=== PATIENT | male | born 1995 | race Caucasian/White ===

== ENCOUNTER 2019-03-07 18:26 | Inpatient (IN) | payer OTHER ==
[2019-03-07 18:48] LABS: #Eosinphils 0.2 thou/uL (0.0-0.7); #Lymphocytes 1.8 thou/uL (1.20-3.40); #Monocytes 0.4 thou/uL (0.11-0.59); #Neutrophils 3.9 thou/uL (1.40-6.50); %Basophils 0.6 % (0.0-1.0); %Eosinophils 2.9 % (0.0-10.0); %Lymphocytes 28.4 % (21.0-51.0); %Monocytes 6.9 % (0.0-10.0); %Neutrophils 61.3 % (42.0-75.0); Hemoglobin 16.6 g/dL (14.0-18.0); Mean Corpuscular HGB CONC 35.4 g/dL (32.0-36.0); Mean Corpuscular Hemoglobin 31.9 pg (27.0-31.0); Mean Corpuscular Volume 90.3 fL (78.0-98.0); Mean Platelet Volume 7.6 fL (7.4-10.4); Platelet Count 236 thou/uL (130-400); RBC Distribution Width 11.5 % (11.5-14.5); Red Blood Cell (RBC) Count 5.19 mill/uL (4.70-6.10); White Blood Cell (WBC) Count 6.4 thou/uL (4.8-10.8)
[2019-03-07 18:52] LABS: Bacteria/HPF None Seen HPF (None Seen); Bilirubin Negative (Negative); Blood, Urine 2+ (Negative); Clarity Clear (Clear); Glucose, Urine (Dipstick) Normal (Negative); Leukocyte Negative Leu/uL (Negative); Nitrite Negative (Negative); Protein, Urine (Dipstick) Negative (Neg-Trace); RBC/HPF 0-3 HPF (0-3); Squamous Epithelial None Seen HPF (0-3); Urobilinogen Normal mg/dL (Less than 2); WBC/HPF 0-3 HPF (0-3)
[2019-03-07 19:11] LABS: ALT (SGPT) 130 U/L (8-55); AST (SGOT) 532 U/L (5-34); Albumin 4.8 g/dL (3.5-5.0); Alkaline Phosphatase 59 U/L (40-110); Anion Gap 13 mmol/L (10-20); BUN (Urea Nitrogen) 8 mg/dL (8.9-20.6); Bilirubin, Total 0.7 mg/dL (0.2-1.2); Calc. Creatinine Clearance 0 mL/min (70-130); Calcium 9.8 mg/dL (7.8-10.44); Carbon Dioxide 24 mmol/L (22-29); Chloride 105 mmol/L (98-107); Estimated GFR-MDRD Greater than 90; Globulin 2.2 g/dL (2.4-3.5); Glucose 101 mg/dL (70-105); Potassium 3.8 mmol/L (3.5-5.1); Sodium 138 mmol/L (136-145)
[2019-03-07 20:10] LABS: CK (CPK) Greater than 40000 U/L (30-200)
[2019-03-07] MEDS: Sodium Chloride 0.9% 1,000 ML IV SCH (22:30)
[2019-03-07] MEDS ORDERED: Ondansetron ODT 4 MG TAB PO PRN (22:31)
[2019-03-07] MEDS ORDERED: Acetaminophen 650 MG Suppository PR PRN (22:31)
[2019-03-07] MEDS ORDERED: Ondansetron PF 4 MG/2 ML Vial IVP PRN (22:31)
[2019-03-07] MEDS: Acetaminophen 325 MG TAB PO PRN (23:10)
[2019-03-07 23:23] VITALS: BMI 26.4
--- NOTE | 2019-03-07 23:27 | HP ---
PRIMARY CARE DOCTOR: The patient has no PCP. CODE STATUS: Full code. TIME OF EVALUATION: 09:40 p.m. CHIEF COMPLAINT: Bilateral upper extremities pain. HISTORY OF PRESENT ILLNESS: This is a 24-year-old male patient with no significant medical problems, who came to the hospital after having bilateral upper arms, the area around the elbows with severe pain, swelling, and decreased range of motion. The patient was in the gym on Wednesday and had been over working. He had not been in gym for quite some time. The patient reported no other significant associated symptoms. Symptoms were [id number]. REVIEW OF SYSTEMS: Positive findings. Musculoskeletal, the patient has arthralgia, swelling in bilateral elbows. All other systems were reviewed and negative except for the findings mentioned above. 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 PAST SURGICAL HISTORY: No surgical history. PSYCHIATRIC HISTORY: No previous psych history. SOCIAL HISTORY: The patient drinks socially. Denies drug use. No smoking history. KNOWN ALLERGIES: Penicillamine. FAMILY HISTORY: Reviewed and noncontributory to current presentation. REPORTED MEDICATIONS: None. PHYSICAL EXAMINATION: VITAL SIGNS: On presentation, blood pressure 184/96 with heart rate 114, respiratory rate was 18, and temperature 98.1. Pain was 3/10. Oxygen saturation was 96% on room air. GENERAL APPEARANCE: The patient is alert, oriented, no acute distress. HEENT: Eyes normal conjunctivae. Moist oral mucosa. Anicteric. No JVD. RESPIRATORY: Bilateral air entry. No rales. No wheezes. Symmetric expansion. CARDIOVASCULAR: Normal rate, regular rhythm. No murmurs. No gallop. No edema. ABDOMEN: Soft. Normal bowel sounds. MUSCULOSKELETAL: Bilateral upper extremities tenderness and pain with decreased range of motion. SKIN: Warm and intact. No pallor. No rash. No redness. Capillary refill seems to be intact. NEURO: No evidence of any new focal weakness. Cranial nerve seems to be intact. PSYCH: The patient is in good mood. No anxiety. Optimal judgment. LABORATORY DATA: Labs were reviewed. Hematology is normal. Chemistry is normal except for AST 532 and ALT 130. CK more than 40,000. Urine was done, and it showed 2+ blood with no red blood cells. ASSESSMENT AND PLAN: The patient will be placed in the hospital with the following medical problems. 1. Rhabdomyolysis with CK of 40,000 as per history likely related to recent extreme workout. We will hydrate. We will monitor kidney function. We will monitor CK level. 2. Deep venous thrombosis prophylaxis. 3. Hypertension. The patient reported this is new for him, could be related to aggressive hydration for CK. We will monitor. Might need IV p.r.n. medication for optimal control. Job ID: [id number] MTDD
[2019-03-08 01:15] LABS: Anion Gap 10 mmol/L (10-20); BUN (Urea Nitrogen) 7 mg/dL (8.9-20.6); Calc. Creatinine Clearance 166 mL/min (70-130); Calcium 8.9 mg/dL (7.8-10.44); Carbon Dioxide 25 mmol/L (22-29); Chloride 110 mmol/L (98-107); Estimated GFR-MDRD Greater than 90; Glucose 115 mg/dL (70-105); Potassium 3.7 mmol/L (3.5-5.1); Sodium 141 mmol/L (136-145)
[2019-03-08] MEDS: traMADol HCl 50 MG TAB PO PRN ×3 (01:22→19:53)
[2019-03-08] MEDS: Sodium Chloride 0.9% 1,000 ML IV SCH ×3 (01:23→06:30)
[2019-03-08 06:10] LABS: #Eosinphils 0.2 thou/uL (0.0-0.7); #Lymphocytes 2.8 thou/uL (1.20-3.40); #Monocytes 0.5 thou/uL (0.11-0.59); #Neutrophils 4.1 thou/uL (1.40-6.50); %Basophils 0.3 % (0.0-1.0); %Eosinophils 2.6 % (0.0-10.0); %Lymphocytes 36.7 % (21.0-51.0); %Neutrophils 53.4 % (42.0-75.0); Hemoglobin 14.1 g/dL (14.0-18.0); Mean Corpuscular HGB CONC 34.8 g/dL (32.0-36.0); Mean Corpuscular Hemoglobin 31.7 pg (27.0-31.0); Mean Corpuscular Volume 91.1 fL (78.0-98.0); Mean Platelet Volume 7.6 fL (7.4-10.4); Platelet Count 204 thou/uL (130-400); RBC Distribution Width 11.5 % (11.5-14.5); Red Blood Cell (RBC) Count 4.47 mill/uL (4.70-6.10); White Blood Cell (WBC) Count 7.6 thou/uL (4.8-10.8)
[2019-03-08] MEDS: Acetaminophen 325 MG TAB PO PRN ×2 (06:30→22:40)
[2019-03-08 06:56] LABS: Anion Gap 11 mmol/L (10-20); BUN (Urea Nitrogen) 6 mg/dL (8.9-20.6); Calc. Creatinine Clearance 182 mL/min (70-130); Calcium 8.3 mg/dL (7.8-10.44); Carbon Dioxide 22 mmol/L (22-29); Chloride 111 mmol/L (98-107); Estimated GFR-MDRD Greater than 90; Glucose 90 mg/dL (70-105); Potassium 3.9 mmol/L (3.5-5.1); Sodium 140 mmol/L (136-145)
[2019-03-08] MEDS ORDERED: Sodium Bicarbonate 50 MEQ in Sodium Chloride 0.45% 1,000 ML IV SCH (07:45)
[2019-03-08] MEDS ORDERED: Enoxaparin Sodium 40 MG/0.4 ML SYRINGE SC SCH (09:00)
[2019-03-08] MEDS: Furosemide 20 MG TAB PO SCH ×2 (09:52→14:25)
--- NOTE | 2019-03-08 10:23 | CON ---
DATE OF CONSULTATION: 03/08/2019 SERVICE: Nephrology. REQUESTING PHYSICIAN: Rod Nichols MD REASON FOR CONSULTATION: Severe rhabdomyolysis with CPK more than 40,000. HISTORY OF PRESENT ILLNESS: A 24-year-old patient with no known medical history, admitted due to bilateral upper arm and chest pain associated with decreased range of motion. The patient on presentation was noted to be hypertensive and in pain. Further evaluation revealed markedly elevated CPK of more than 40,000. Impression of rhabdomyolysis was made and the patient was started on IV fluid therapy. However, subsequent CPK levels came back more than 40,000. Hence, Nephrology consult. The patient continues to complain of bilateral upper arm pain and swelling as well as decreased range of motion and anterior chest pain. He denied fever, headache, nausea, vomiting, change in mental status, palpitations, dizziness, nausea, vomiting, change in bowel habit, hematuria, dysuria, hematemesis, or leg swelling. PAST MEDICAL HISTORY: Reported history of PVCs for which he was seen by Cardiology, otherwise no current medical problems. PAST SURGICAL HISTORY: None. PSYCHIATRIC HISTORY: None. FAMILY HISTORY: Reviewed, but noncontributory. SOCIAL HISTORY: The patient drinks alcohol occasionally, but denied recreational drug use or tobacco use. ALLERGIES: PENICILLIN. HOME MEDICATIONS: None. CURRENT MEDICATIONS: 1. Sodium bicarb in half NS at 200 mL/h. 2. Lovenox 40 mg subcutaneous daily. 3. Tylenol as needed. 4. Zofran as needed. 5. Tramadol 50 mg q.6 p.r.n. as needed. REVIEW OF SYSTEMS: 12-point review of system performed was negative other than pertinent positives and negatives included in the history of present illness. PHYSICAL EXAMINATION: VITAL SIGNS: Temperature 98.0, pulse 105, respiratory rate 16, SpO2 of 99% on room air, blood pressure is 141/94. GENERAL: Young male, in no distress. Afebrile. Anicteric. Acyanotic. HEENT: Normocephalic, atraumatic. Oral mucosa is moist. NECK: Supple. Nontender with good range of motion. No masses or lymphadenopathy appreciated. CARDIOVASCULAR: Regular rhythm and rate, but tachycardic. Normal heart sounds 1 and 2 with no obvious murmur. RESPIRATORY: Fair air entry bilaterally with no crackle or rhonchi or use of accessory muscles. GI: Full, soft, nontender, nondistended with normal bowel sounds. MUSCULOSKELETAL/EXTREMITIES: [id number] swelling of bilateral upper arm with some tenderness. Anterior chest wall tenderness also noted. Lower extremities are grossly normal looking and atraumatic with no edema or erythema. MANAGER CLEANING: Conscious, alert, oriented x3 with appropriate mental status. Cranial nerves 2 through 12 are grossly intact. The patient moves all extremities though limited in the upper extremities due to pain. DIAGNOSTIC DATA: BMP showed sodium 140, potassium 3.9, chloride 111, CO2 of 22, BUN 6, creatinine 0.79, glucose 90, calcium 8.3. Of note, on presentation, chloride was 105, CO2 was 24, and creatinine was 1.01. CMP on presentation showed AST of 532, ALT of 130, alkaline phosphatase of 59, total bilirubin of 0.7, and total protein of 7.0 with albumin 4.8. CPK earlier this morning is greater than 40,000, which was also the same value on presentation. CBC showed WBC count of 7.6, hemoglobin of 14.1, MCV of 91.1, and platelet of 204. Urinalysis performed on presentation showed clear colorless urine with pH of 6.5, specific gravity of 1.003, positive blood with negative protein, ketones, nitrite, bilirubin, and leukocyte esterase. Microscopy showed 0 to 3 rbc's and 0 to 3 wbc's. ASSESSMENT: 1. Severe rhabdomyolysis with CPK more than 40,000. 2. Abnormal liver function tests. 3. Acute renal insufficiency from dehydration and possible rhabdomyolysis induced acute kidney injury. Creatinine is down from 1.01 to 0.79. Baseline is unknown. PLAN: 1. We will start aggressive IV therapy with lactated Ringer at 500 mL/h. 2. We will also add Lasix 20 mg p.o. b.i.d. 3. We will monitor renal function, electrolytes as well as CPK levels. Other treatment as per primary attending. Many thanks for involving us in the care of this patient. We will follow along with you. Further recommendation to follow depending on hospital course and review of other diagnostic test. Job ID: [id number]
[2019-03-08] MEDS: Lactated Ringer's 1,000 ML IV SCH ×7 (11:12→22:15)
--- NOTE | 2019-03-08 18:48 | PDOC.HOSPP ---
- Subjective Encounter Date: 03/08/19 Encounter Time: 10:30 Subjective: Patient seen and examined for Rhabdomyolysis. No significant muscle pain. No new complaints. No overnight events - Objective Vital Signs & Weight: Vital Signs (12 hours) Temp Pulse Resp BP Pulse Ox 03/08/19 15:34 97.7 F 99 16 121/79 99 03/08/19 11:26 98.3 F 110 H 16 161/92 H 97 03/08/19 07:39 98.0 F 105 H 16 141/94 H 99 Weight Weight 195 lb 6.4 oz I&O: 03/07/19 03/08/19 03/09/19 06:59 06:59 06:59 Intake Total 3200 5284 Output Total 6500 Balance 3200 -1216 Result Diagrams: 03/08/19 05:54 03/08/19 05:54 Additional Labs: Laboratory Tests 03/07/19 03/08/19 18:40 05:54 AST 532 H ALT 130 H Creatine Kinase Greater than 24925 H Greater than 27375 H Hospitalist ROS - Review of Systems Respiratory: denies: cough, dry, shortness of breath, hemoptysis, SOB with excertion, pleuritic pain, sputum, wheezing, other Cardiovascular: denies: chest pain, palpitations, orthopnea, paroxysmal noc. dyspnea, edema, light headedness, other - Medication Medications: Active Medications Generic Name Dose Route Start Last Admin Trade Name Freq PRN Reason Stop Dose Admin Acetaminophen 650 mg 03/07/19 22:31 03/08/19 06:30 Tylenol PO 650 mg Q4H PRN Administration Headache/Fever/Mild Pain (1-3) Furosemide 20 mg 03/08/19 09:00 03/08/19 14:25 Lasix PO 20 mg 0900,1400 ARABELLA Administration Lactated Ringer's 1,000 mls @ 500 mls/hr 03/08/19 09:15 03/08/19 17:36 Lactated Ringer's IV 1,000 mls .Q2H ARABELLA Administration Sodium Chloride 10 ml 03/08/19 09:00 03/08/19 09:03 Flush - Normal Saline IVF Not Given Q12HR ARABELLA Tramadol HCl 50 mg 03/08/19 01:04 03/08/19 09:01 Ultram PO 50 mg Q6H PRN Administration Moderate Pain (4-6) - Exam General Appearance: NAD Heart: RRR, no rubs Respiratory: CTAB, no rales Gastrointestinal: soft, non-tender, normal bowel sounds Extremities: no edema Hosp A/P (1) Rhabdomyolysis Code(s): M62.82 - RHABDOMYOLYSIS Status: Acute (2) Abnormal LFTs Code(s): R94.5 - ABNORMAL RESULTS OF LIVER FUNCTION STUDIES Status: Acute - Plan plan discussed w/ family Add sodium bicarbonate to IVF Consult Nephrology AM labs Abn LFTS probably due to Rhabdomyolysis Ambulate
[2019-03-08] MEDS: Cyclobenzaprine 10 MG TAB PO PRN (19:53)
[2019-03-09] MEDS: Lactated Ringer's 1,000 ML IV SCH ×12 (00:20→22:20)
[2019-03-09 07:11] LABS: ALT (SGPT) 174 U/L (8-55); AST (SGOT) 612 U/L (5-34); Albumin 3.7 g/dL (3.5-5.0); Alkaline Phosphatase 40 U/L (40-110); Anion Gap 10 mmol/L (10-20); BUN (Urea Nitrogen) 5 mg/dL (8.9-20.6); Bilirubin, Total 0.7 mg/dL (0.2-1.2); Calc. Creatinine Clearance 192 mL/min (70-130); Carbon Dioxide 30 mmol/L (22-29); Chloride 106 mmol/L (98-107); Estimated GFR-MDRD Greater than 90; Globulin 1.6 g/dL (2.4-3.5); Glucose 86 mg/dL (70-105); Magnesium 1.7 mg/dL (1.6-2.6); Phosphorus 4.2 mg/dL (2.3-4.7); Potassium 3.8 mmol/L (3.5-5.1); Protein, Total 5.3 g/dL (6.0-8.3); Sodium 142 mmol/L (136-145)
[2019-03-09 07:58] LABS: CK (CPK) Greater than 40000 U/L (30-200)
[2019-03-09] MEDS: traMADol HCl 50 MG TAB PO PRN (08:18)
[2019-03-09] MEDS: Furosemide 20 MG TAB PO SCH (08:18)
--- NOTE | 2019-03-09 09:04 | PRG ---
DATE OF SERVICE: 03/09/2019 SERVICE: Nephrology. SUBJECTIVE: A 24-year-old male being followed up for severe rhabdomyolysis. The patient recently started working out and developed bilateral arm and anterior chest discomfort associated with decreased range of motion of upper extremity. Upper extremity aches and pains are getting better. No history of nausea, vomiting, or dizziness. The patient also denies shortness of breath. OBJECTIVE: VITAL SIGNS: Temperature 97.6, pulse 90, respiratory rate 16, SpO2 of 98% on room air, blood pressure of 142/86. GENERAL: Young male, in no distress. Afebrile. Anicteric. Acyanotic. HEENT: Normocephalic, atraumatic. Oral mucosa is moist. CARDIOVASCULAR: Regular rhythm and rate with normal heart sounds one and two. RESPIRATORY: Good air entry bilaterally with no crackle or rhonchi or use of accessory muscles. GASTROINTESTINAL: Full, soft, nontender, nondistended with normal bowel sounds. MUSCULOSKELETAL/EXTREMITIES: Tenderness of both shoulders, anterior chest, and upper arm persist, but better. Swelling is also better. Swelling is regressing and range of motion is improving. No leg edema appreciated. CENTRAL NERVOUS SYTEM: Conscious, alert, oriented x3 with appropriate mental status. DIAGNOSTIC DATA: CMP showed sodium 142, potassium 3.8, chloride 106, CO2 of 30, BUN 5, creatinine 0.75, glucose 86, calcium 9.0, phosphorus 4.2, magnesium 1.7, total bilirubin 0.7, AST 612, ALT 174, alkaline phosphatase 40, total protein 5.3, albumin 3.7, and globulin 1.6. CPK is still greater than 40,000. ASSESSMENT: 1. Severe rhabdomyolysis. 2. Acute kidney injury: Resolved. 3. Abnormal liver function studies. 4. Upper extremity cramps and pains. PLAN: 1. Continue lactated Ringer's at 500 mL/h. Decrease Lasix to 20 mg p.o. daily given the fact that the patient was negative by about 300 mL in the last 24 hours. 2. Monitor electrolytes and repeat CPK and CMP in the morning. Job ID: [id number]
--- NOTE | 2019-03-09 10:09 | PRG ---
DATE OF SERVICE: 03/09/2019 SUBJECTIVE: The patient is seen and examined at bedside. He noticed some improvement in the muscle soreness and range of motion on the left upper extremity, but the right upper extremity is still swollen and less tender as it was before. He tolerates his food without any problems. His urine output is 12,350 and the intake was 12,084 for the last 24 hours. OBJECTIVE: VITAL SIGNS: Blood pressure is 142/86, pulse is 90, temperature is 97.6, respiratory rate is 16, and O2 saturation is 98% on room air. HEENT: His head is atraumatic and normocephalic. Eyes are PERRLA. Sclerae are nonicteric. LUNGS: Clear. HEART: S1 and S2 normal. EXTREMITIES: Upper extremities still quite swollen and tender to range of motion. No clubbing, cyanosis, or edema in the lower extremities. LABORATORY DATA: Labs showed normal electrolytes. BUN of 5, creatinine 0.75. AST 612, ALT 174, and creatine kinase greater than 40,000. IMPRESSION AND PLAN: 1. Severe rhabdomyolysis. We will continue IV fluids. Clinically, he is improving. CPK level is still elevated. 2. Abnormal LFTs secondary to #1. We will replace any electrolyte deficiencies. If present, we will continue IV fluids and keep checking his CPK levels and liver function tests. Job ID: [id number]
[2019-03-09] MEDS: Cyclobenzaprine 10 MG TAB PO PRN (20:33)
[2019-03-10] MEDS: Lactated Ringer's 1,000 ML IV SCH ×13 (00:58→23:20)
[2019-03-10 07:02] LABS: ALT (SGPT) 197 U/L (8-55); AST (SGOT) 600 U/L (5-34); Albumin 3.9 g/dL (3.5-5.0); Alkaline Phosphatase 42 U/L (40-110); Anion Gap 11 mmol/L (10-20); BUN (Urea Nitrogen) 6 mg/dL (8.9-20.6); Bilirubin, Total 0.7 mg/dL (0.2-1.2); Calc. Creatinine Clearance 190 mL/min (70-130); Calcium 9.2 mg/dL (7.8-10.44); Carbon Dioxide 29 mmol/L (22-29); Chloride 105 mmol/L (98-107); Estimated GFR-MDRD Greater than 90; Globulin 1.7 g/dL (2.4-3.5); Glucose 90 mg/dL (70-105); Potassium 3.6 mmol/L (3.5-5.1); Protein, Total 5.6 g/dL (6.0-8.3); Sodium 141 mmol/L (136-145)
[2019-03-10 07:04] LABS: #Eosinphils 0.3 thou/uL (0.0-0.7); #Lymphocytes 2.4 thou/uL (1.20-3.40); #Monocytes 0.5 thou/uL (0.11-0.59); #Neutrophils 2.9 thou/uL (1.40-6.50); %Basophils 0.4 % (0.0-1.0); %Eosinophils 4.5 % (0.0-10.0); %Lymphocytes 39.8 % (21.0-51.0); %Neutrophils 47.4 % (42.0-75.0); Hemoglobin 13.3 g/dL (14.0-18.0); Mean Corpuscular HGB CONC 34.7 g/dL (32.0-36.0); Mean Corpuscular Hemoglobin 31.2 pg (27.0-31.0); Mean Corpuscular Volume 89.7 fL (78.0-98.0); Mean Platelet Volume 8.1 fL (7.4-10.4); Platelet Count 181 thou/uL (130-400); RBC Distribution Width 11.4 % (11.5-14.5); Red Blood Cell (RBC) Count 4.25 mill/uL (4.70-6.10); White Blood Cell (WBC) Count 6.1 thou/uL (4.8-10.8)
[2019-03-10 07:34] LABS: CK (CPK) Greater than 40000 U/L (30-200)
[2019-03-10] MEDS: Furosemide 20 MG TAB PO SCH (09:09)
--- NOTE | 2019-03-10 09:44 | PRG ---
DATE OF SERVICE: 03/10/2019 SUBJECTIVE: The patient is seen and examined at the bedside. He does not have much complaints to offer. He feels that his muscle soreness is improved to some extent in his upper extremities. OBJECTIVE: VITAL SIGNS: Blood pressure is 146/83, pulse is 72, temperature is 97.2, respirations 18, O2 saturation is 97% on room air. HEENT: His head is atraumatic and normocephalic. Eyes are PERRLA. Sclerae are nonicteric. Oral mucosa is moist. NECK: Supple. LUNGS: Clear. HEART: S1, S2 normal. ABDOMEN: Soft, nontender. EXTREMITIES: No clubbing, cyanosis, or edema. NEUROLOGICAL EXAMINATION: Alert and oriented x3. There is no any motor or sensory deficits. LABORATORY DATA: White count of 6.1, hemoglobin of 13.3, hematocrit 38.2, platelet count is 181,000. Sodium of 141, potassium 3.6, chloride 105, CO2 of 29, BUN 6, creatinine 0.76. AST 600, ALT 197, alkaline phosphatase 42. CPK greater than 40,000. IMPRESSION: 1. Rhabdomyolysis, still with very high CPK levels despite of several days of IV fluids. We will continue IV fluids. His kidney function is good. His creatinine is within normal limits. He is on Lasix, putting out more than 13,000 mL for the last 24 hours with intake of more than 12,000. 2. Elevated LFTs, which is felt to be is secondary to #1. We will continue current regimen and will follow closely. Continue IV fluids. Job ID: [id number]
--- NOTE | 2019-03-10 12:01 | PRG ---
DATE OF SERVICE: 03/10/2019 SERVICE: Nephrology. SUBJECTIVE: A 24-year-old male being followed up for severe rhabdomyolysis. The patient recently started body workout and developed bilateral anterior chest and upper limb pain, swelling, and decreased range of motion. Swelling and pain have improved. Denied fever, nausea, vomiting, hematuria, or abdominal pain. OBJECTIVE: VITAL SIGNS: Temperature 97.3, pulse 85, respiratory rate 18, SpO2 of 100 on room air, blood pressure is 158/89. GENERAL: Young male, in no distress. Afebrile. Anicteric. Acyanotic. HEENT: Normocephalic, atraumatic. Oral mucosa is moist. CARDIOVASCULAR: Regular rhythm and rate with normal heart sounds 1 and 2. RESPIRATORY: Good air entry bilaterally with no obvious crackle or rhonchi or use of accessory muscles. GI: Full, soft, nontender, nondistended with normal bowel sounds. MUSCULOSKELETAL/EXTREMITIES: Mild anterior chest showed upper arm tenderness noted. No obvious swelling appreciated. Range of motion in all the extremities seemed preserved. PAPER COATING SUPERVISOR: Conscious, alert, oriented x3 with appropriate mental status. Cranial nerves 2 through 12 are grossly intact. DIAGNOSTIC DATA: CBC showed WBC count of 6.1, hemoglobin of 13.3, MCV of 89.7, platelet of 181. CMP showed sodium 141, potassium 3.6, chloride 105, CO2 of 29, BUN 6, creatinine 0.76, glucose 90, calcium 9.2, total bilirubin 0.7, AST 600, ALT 197, alkaline phosphatase 42, total protein 5.6, albumin 3.9. CPK remained greater than 40,000. ASSESSMENT: 1. Severe rhabdomyolysis. CPK is still above more than 40,000. However, upper limb swelling and pain and tenderness as well as range of motion has all improved. 2. Abnormal liver enzymes. This is related to rhabdomyolysis with possible liver toxicity from massive amount of heme product released. 3. Acute kidney injury: Resolved. PLAN: 1. Continue lactated Ringer's at 500 mL/hour. We will also continue Lasix 20 mg p.o. daily. 2. Other supportive care to continue as per primary attending. We will repeat CMP in the morning. Job ID: [id number]
[2019-03-10] MEDS: Cyclobenzaprine 10 MG TAB PO PRN (20:26)
[2019-03-11] MEDS: Lactated Ringer's 1,000 ML IV SCH ×11 (01:26→23:13)
[2019-03-11 05:49] LABS: ALT (SGPT) 193 U/L (8-55); AST (SGOT) 441 U/L (5-34); Albumin 3.8 g/dL (3.5-5.0); Alkaline Phosphatase 42 U/L (40-110); Anion Gap 14 mmol/L (10-20); BUN (Urea Nitrogen) 8 mg/dL (8.9-20.6); Bilirubin, Total 0.5 mg/dL (0.2-1.2); Calc. Creatinine Clearance 192 mL/min (70-130); Calcium 9.1 mg/dL (7.8-10.44); Carbon Dioxide 25 mmol/L (22-29); Chloride 106 mmol/L (98-107); Estimated GFR-MDRD Greater than 90; Globulin 1.8 g/dL (2.4-3.5); Glucose 93 mg/dL (70-105); Magnesium 1.6 mg/dL (1.6-2.6); Potassium 3.7 mmol/L (3.5-5.1); Protein, Total 5.6 g/dL (6.0-8.3); Sodium 141 mmol/L (136-145)
[2019-03-11 06:33] LABS: CK (CPK) 27472 U/L (30-200)
[2019-03-11] MEDS: Furosemide 20 MG TAB PO SCH (08:40)
--- NOTE | 2019-03-11 09:43 | PRG ---
DATE OF SERVICE: 03/11/2019 SERVICE: Nephrology. SUBJECTIVE: A 24-year-old male, being followed up for severe rhabdomyolysis. The patient continued to complain of bilateral upper arm pain, but that has improved. Denied nausea, vomiting, shortness of breath, cough, or leg swelling. OBJECTIVE: VITAL SIGNS: Temperature 97.5, pulse 85, respiratory rate 16, SpO2 of 97% on room air, and blood pressure is 132/86. GENERAL: Young male, in no distress. Afebrile. Anicteric. Acyanotic. HEENT: Normocephalic, atraumatic. Oral mucosa is moist. CARDIOVASCULAR: Regular rhythm and rate with normal heart sounds 1 and 2. RESPIRATORY: Good air entry bilaterally with no crackle or rhonchi or use of accessory muscles. GASTROINTESTINAL: Full, soft, nontender, and nondistended with normal bowel sounds. EXTREMITIES: Mild tenderness of bilateral upper arm. Range of motion, however, is preserved. Other extremities are grossly normal, atraumatic with no edema or erythema. CENTRAL NERVOUS SYSTEM: Conscious, alert, oriented x3 with appropriate mental status. Cranial nerves II through XII are grossly intact. DIAGNOSTIC DATA: CMP showed sodium 141, potassium 3.7, chloride 106, CO2 of 25, BUN 8, creatinine 0.75, glucose 93, calcium 9.1, total bilirubin 0.5, AST 441, ALT 193, alkaline phosphatase 42, total protein 5.6, albumin 3.8, globulin 1.8, magnesium is 1.6. CPK is down to 27,472. ASSESSMENT: 1. Severe rhabdomyolysis. Levels are trending down. 2. Hypomagnesemia: No acute issues. 3. Transaminitis: Trending downwards. 4. Renal function is preserved. 5. Volume status and acid-base balance: Acceptable. PLAN: 1. Continue aggressive IV fluid therapy with lactated Ringer's at 500 mL/h. 2. Start magnesium supplementation with magnesium oxide 400 mg p.o. b.i.d. 3. Continue to follow CMP and CPK. Job ID: [id number]
--- NOTE | 2019-03-11 11:32 | PRG ---
DATE OF SERVICE: 03/11/2019 SUBJECTIVE: The patient is seen and examined at the bedside. There is no change in his clinical complaints. He still has some soreness in both upper extremities, and there is some swelling associated with it, but he is tolerating food without any problems. He is moving his bowels. OBJECTIVE: VITAL SIGNS: Blood pressure is 132/86, pulse is 85, temperature is 97.5, respirations 16, O2 saturation is 97% on room air. HEENT: His head is atraumatic, normocephalic. Sclerae are nonicteric. LUNGS: Clear. HEART: S1, S2 normal. No S3. No S4. ABDOMEN: Soft, nontender. EXTREMITIES: No clubbing, cyanosis, or edema. He has normal neuro function. Input and output for the last 24 hours are 7230 and 4250 respectively, which makes him positive of 2980. LABORATORY DATA: Normal kidney function. AST 441, ALT 193, and normal alkaline phosphatase. CPK is 27,472. IMPRESSION: 1. Severe rhabdomyolysis. Finally, we have CPK level down to 27,000. We will continue aggressive hydration with IV fluids with lactated Ringer's at 500 mL/hr. We will continue to follow up with CPK levels. 2. Elevated liver function test, which is most likely related to rhabdo. Those numbers are trending down too. DISCUSSION: The patient clinically is doing well. We will continue his regimen with IV Lasix and IV fluids, and he should be ready to be discharged in the next most likely 48 hours. Job ID: [id number]
[2019-03-11] MEDS: Acetaminophen 325 MG TAB PO PRN (23:13)
[2019-03-12] MEDS: Lactated Ringer's 1,000 ML IV SCH ×11 (01:18→23:01)
[2019-03-12 05:24] LABS: ALT (SGPT) 169 U/L (8-55); AST (SGOT) 280 U/L (5-34); Albumin 3.7 g/dL (3.5-5.0); Alkaline Phosphatase 42 U/L (40-110); Anion Gap 14 mmol/L (10-20); BUN (Urea Nitrogen) 6 mg/dL (8.9-20.6); Bilirubin, Total 0.5 mg/dL (0.2-1.2); Calc. Creatinine Clearance 197 mL/min (70-130); Calcium 8.8 mg/dL (7.8-10.44); Carbon Dioxide 22 mmol/L (22-29); Chloride 107 mmol/L (98-107); Estimated GFR-MDRD Greater than 90; Globulin 1.9 g/dL (2.4-3.5); Glucose 89 mg/dL (70-105); Potassium 3.5 mmol/L (3.5-5.1); Protein, Total 5.6 g/dL (6.0-8.3); Sodium 139 mmol/L (136-145)
[2019-03-12 05:51] LABS: CK (CPK) 13641 U/L (30-200)
[2019-03-12] MEDS: Magnesium Oxide 400 MG TAB PO SCH ×2 (08:16→21:08)
[2019-03-12] MEDS ORDERED: Furosemide 20 MG TAB PO SCH (09:00)
--- NOTE | 2019-03-12 09:46 | PRG ---
DATE OF SERVICE: 03/12/2019 SERVICE: Nephrology. SUBJECTIVE: A 24-year-old male being followed up for rhabdomyolysis. The patient continued to make adequate urine. Arm pain and aches have subsided. No nausea, vomiting, or new complaint. OBJECTIVE: VITAL SIGNS: Temperature 97.6, pulse 74, respiratory rate 16, SpO2 of 94% on room air, and blood pressure is 148/86. GENERAL: Young male, in no distress. Afebrile. Anicteric. Acyanotic. HEENT: Normocephalic and atraumatic. CARDIOVASCULAR: Regular rhythm and rate with normal heart sounds, one and two. RESPIRATORY: Good air entry bilaterally with no crackle or rhonchi or use of accessory muscles. GI: Full, soft, nontender, and nondistended with normal bowel sounds. EXTREMITIES: Grossly normal looking and atraumatic with no edema or erythema. HANDLE ASSEMBLER: Conscious, alert and oriented x3 with appropriate mental status. DIAGNOSTIC DATA: CMP showed sodium of 139, potassium of 3.5, chloride of 107, CO2 of 22, BUN of 6, creatinine of 0.73, glucose of 89, calcium of 8.8. Total bilirubin 0.5, ALT 280, AST 169, alkaline phosphatase 42, total protein 5.6, albumin 3.7, and globulin 1.9. CPK is 13,641, down from greater than 40,000 two days ago. ASSESSMENT: 1. Rhabdomyolysis. 2. Hypomagnesemia. 3. Acute kidney injury, resolved. PLAN: 1. Continue aggressive IV fluid therapy with LR at 500 mL/h. 2. Start magnesium supplementation with magnesium oxide 400 b.i.d. 3. Continue Lasix 20 mg p.o. daily. 4. Continue to monitor intake and output as well as daily weights. Repeat CMP and CPK in the morning. Job ID: [id number]
--- NOTE | 2019-03-12 13:51 | PRG ---
DATE OF SERVICE: 03/12/2019 SUBJECTIVE: The patient is seen and examined at the bedside. He is doing quite well. He does not have any upper extremity soreness anymore. There is still some swelling of both upper extremities, but this is improving according to him. OBJECTIVE: VITAL SIGNS: Blood pressure is 148/86, pulse is 74, respirations 16, O2 saturation is 94% on room air, and his temperature is 97.6. HEENT: His pupils are responding to light properly. Sclerae are nonicteric. Oral mucosa is moist. NECK: Supple. LUNGS: Clear. HEART: S1 and S2 normal. ABDOMEN: Soft and nontender. EXTREMITIES: No clubbing or cyanosis. Mild edema in upper extremities 1+, similar bilaterally. NEUROLOGIC: He follows my commands. He moves his all 4 extremities. There are no any motor deficits. LABORATORY DATA: Labs showed normal electrolytes, creatinine of 0.73, BUN of 6. ALT 280, AST 169, alkaline phosphatase 42, and CPK 13,641. IMPRESSION: 1. Severe rhabdomyolysis, responding to IV fluids, so far we do not see any kidney damage. 2. Elevated liver function test, improving. PLAN: Continue aggressive IV fluid therapy with lactated Ringer's at 500 mL/h. Continue Lasix and continue kidney function and CPK levels. Job ID: [id number]
[2019-03-12] MEDS: Acetaminophen 325 MG TAB PO PRN (23:08)
[2019-03-13] MEDS: Lactated Ringer's 1,000 ML IV SCH ×13 (01:10→22:31)
[2019-03-13 06:09] LABS: ALT (SGPT) 137 U/L (8-55); AST (SGOT) 143 U/L (5-34); Albumin 3.9 g/dL (3.5-5.0); Alkaline Phosphatase 43 U/L (40-110); Anion Gap 9 mmol/L (10-20); BUN (Urea Nitrogen) 7 mg/dL (8.9-20.6); Bilirubin, Total 0.6 mg/dL (0.2-1.2); Calc. Creatinine Clearance 203 mL/min (70-130); Calcium 9.1 mg/dL (7.8-10.44); Carbon Dioxide 29 mmol/L (22-29); Chloride 106 mmol/L (98-107); Estimated GFR-MDRD Greater than 90; Globulin 1.6 g/dL (2.4-3.5); Glucose 90 mg/dL (70-105); Potassium 3.4 mmol/L (3.5-5.1); Protein, Total 5.5 g/dL (6.0-8.3); Sodium 141 mmol/L (136-145)
[2019-03-13 06:24] LABS: CK (CPK) 5473 U/L (30-200)
[2019-03-13] MEDS ORDERED: Potassium Chloride 20 MEQ TAB PO SCH (07:45)
[2019-03-13] MEDS: Magnesium Oxide 400 MG TAB PO SCH ×2 (07:50→20:23)
[2019-03-13] MEDS: Potassium Chloride 20 MEQ TAB PO SCH ×2 (07:50→11:27)
[2019-03-13] MEDS: Furosemide 20 MG TAB PO SCH (07:51)
[2019-03-13] MEDS: Loratadine 10 MG TAB PO PRN (07:52)
--- NOTE | 2019-03-13 08:29 | PRG ---
DATE OF SERVICE: 03/13/2019 SUBJECTIVE: A 24-year-old male being followed up for severe rhabdomyolysis. No new problem. OBJECTIVE: VITAL SIGNS: Temperature 97.6, pulse 74, respiratory rate 16, SpO2 of 94 on room air, blood pressure is 148/86. GENERAL: Young male, in no distress. Afebrile. Anicteric. Acyanotic. HEENT: Normocephalic, atraumatic. CARDIOVASCULAR: Regular rhythm and rate. Normal heart sounds 1 and 2. RESPIRATORY: Good air entry bilaterally with no crackle or rhonchi. GI: Full, soft, nontender, nondistended with normal bowel sounds. EXTREMITIES: Grossly normal looking atraumatic with no edema. CARPENTRY SPECIALIST: Conscious and alert, oriented x3 with appropriate mental status. DIAGNOSTIC DATA: CMP showed sodium 141, potassium 3.4, chloride 106, CO2 of 29, BUN 7, creatinine 0.72, glucose 90, calcium 9.1, total bilirubin 0.6, AST 143, ALT 137, alkaline phosphatase 43, total protein 5.5, albumin 3.9. CPK is down to 5473 from 13,641 yesterday. ASSESSMENT: 1. Acute severe rhabdomyolysis. 2. Hypokalemia. 3. Acute kidney injury: Resolved. PLAN: 1. Continue aggressive IV fluid therapy with LR 500 mL/h. 2. Replete serum potassium with potassium chloride 80 mEq today. 3. Continue magnesium supplementation. 4. Also continue low-dose diuretics to prevent fluid overload. 5. Repeat CPK and CMP in the morning. Discontinuation of IV fluid therapy is contemplated if CPK level is less than 1000 tomorrow. Job ID: [id number]
--- NOTE | 2019-03-13 09:40 | PRG ---
DATE OF SERVICE: 03/13/2019 SUBJECTIVE: The patient is seen and examined at bedside. He does not have much complaints to offer. He is feeling fine. His appetite is fair. OBJECTIVE: VITAL SIGNS: Blood pressure is 167/110, pulse is 85, temperature is 97.4, respirations 18, O2 saturation is 100% on room air. HEENT: His head is atraumatic and normocephalic. Eyes are PERRLA. Sclerae are nonicteric. Oral mucosa is moist. NECK: Supple. LUNGS: Clear. HEART: S1 and S2 normal. ABDOMEN: Soft, nontender. Bowel sounds are present. EXTREMITIES: No clubbing, cyanosis, or edema. NEUROLOGIC: Intact. LABORATORY DATA: Labs showed sodium of 141, potassium 3.4, chloride 106, CO2 of 29, BUN of 7, creatinine of 0.72, AST 143, ALT 137, normal alkaline phosphatase. His CPK is down to 5473. IMPRESSION: 1. Acute severe rhabdomyolysis. 2. Hypokalemia. 3. Acute kidney injury, resolved. PLAN: Plan is to supplement his potassium. It was ordered by circus hand 40 mEq of KCl in the next few hours, repeat the dose. We are going to continue his lactated Ringer at 500 mL/h and check his blood pressure again. He should be able to go home in the next 24 to 48 hours. Job ID: [id number]
[2019-03-14] MEDS: Lactated Ringer's 1,000 ML IV SCH ×8 (00:29→23:30)
[2019-03-14 07:01] LABS: ALT (SGPT) 110 U/L (8-55); AST (SGOT) 79 U/L (5-34); Albumin 3.8 g/dL (3.5-5.0); Alkaline Phosphatase 42 U/L (40-110); Anion Gap 11 mmol/L (10-20); BUN (Urea Nitrogen) 7 mg/dL (8.9-20.6); Bilirubin, Total 0.6 mg/dL (0.2-1.2); CK (CPK) 2354 U/L (30-200); Calc. Creatinine Clearance 193 mL/min (70-130); Calcium 8.9 mg/dL (7.8-10.44); Carbon Dioxide 27 mmol/L (22-29); Chloride 106 mmol/L (98-107); Estimated GFR-MDRD Greater than 90; Globulin 1.8 g/dL (2.4-3.5); Glucose 86 mg/dL (70-105); Potassium 3.6 mmol/L (3.5-5.1); Protein, Total 5.6 g/dL (6.0-8.3); Sodium 140 mmol/L (136-145)
[2019-03-14] MEDS: Loratadine 10 MG TAB PO PRN (08:04)
[2019-03-14] MEDS: Furosemide 20 MG TAB PO SCH (08:04)
[2019-03-14] MEDS: Magnesium Oxide 400 MG TAB PO SCH ×2 (08:04→20:41)
--- NOTE | 2019-03-14 10:00 | PRG ---
DATE OF SERVICE: 03/14/2019 SERVICE: Nephrology. SUBJECTIVE: A 24-year-old male being followed up for rhabdomyolysis. The patient recently started exercises in the gym and developed anterior chest and bilateral upper extremity pain and body aches as well as swelling and decreased range of motion. Found to have markedly elevated CPK of more than 40,000. Clinically improved. No nausea, vomiting, or body aches. OBJECTIVE: VITAL SIGNS: Temperature 97.8, pulse 85, respiratory rate 16, SpO2 of 99% on room air, and blood pressure is 135/76. GENERAL: Young male, in no distress. Afebrile. Anicteric. Acyanotic. HEENT: Normocephalic, atraumatic. Oral mucosa is moist. RESPIRATORY: Good air entry bilaterally with no crackle or rhonchi or use of accessory muscles. GASTROINTESTINAL: Full, soft, nontender, and nondistended with normal bowel sounds. EXTREMITIES: Grossly normal looking, atraumatic with no edema or erythema. CENTRAL NERVOUS SYSTEM: Conscious and alert and oriented x3 with appropriate mental status. The patient is ambulant. DIAGNOSTIC DATA: CMP showed sodium 140, potassium 3.6, chloride 106, CO2 of 27, BUN 7, creatinine 0.72, glucose 86, calcium 8.9, total bilirubin 0.6, AST 79, ALT 110, alkaline phosphatase 42, total protein 5.6, albumin 3.8, and globulin 1.8. CPK is down to 2354 from more than 40,000. ASSESSMENT: 1. Rhabdomyolysis: CPK is trending down with aggressive fluid therapy. 2. Acute kidney injury: Resolved. 3. Hypokalemia: Repleted. PLAN: 1. Continue IV fluid therapy with LR, however, we will decrease the rate to 250 mL/h. 2. We will discontinue diuretics at this time. We will plan to discontinue IV fluid in the morning and monitor the patient of IV fluid therapy. If numbers are still trending down, the patient will be discharged tomorrow. Job ID: [id number]
[2019-03-14] MEDS ORDERED: Potassium Chloride 20 MEQ TAB PO SCH (13:45)
--- NOTE | 2019-03-14 16:05 | PDOC.HOSPP ---
- Subjective Encounter Date: 03/14/19 Encounter Time: 13:00 Subjective: Patient seen and examined for Rhabdomyolysis. Feels better. No new complaints. No overnight events - Objective Vital Signs & Weight: Vital Signs (12 hours) Temp Pulse Resp BP Pulse Ox 03/14/19 07:34 97.8 F 85 16 135/76 99 Weight Weight 189 lb I&O: 03/13/19 03/14/19 03/15/19 06:59 06:59 06:59 Intake Total 7350 05769 Output Total 7875 30054 Balance -525 3335 Result Diagrams: 03/10/19 05:49 03/14/19 05:21 Additional Labs: Laboratory Tests 03/14/19 05:21 Creatine Kinase 2354 H Laboratory Tests 03/14/19 05:21 AST 79 H ALT 110 H Hospitalist ROS - Review of Systems Cardiovascular: denies: chest pain, palpitations, orthopnea, paroxysmal noc. dyspnea, edema, light headedness, other Gastrointestinal: denies: nausea, vomiting, abdominal pain, diarrhea, constipation, melena, hematochezia, other - Medication Medications: Active Medications Generic Name Dose Route Start Last Admin Trade Name Freq PRN Reason Stop Dose Admin Acetaminophen 650 mg 03/07/19 22:31 03/12/19 23:08 Tylenol PO 650 mg Q4H PRN Administration Headache/Fever/Mild Pain (1-3) Lactated Ringer's 1,000 mls @ 250 mls/hr 03/14/19 07:48 03/14/19 14:53 Lactated Ringer's IV Not Given .Q4H ARABELLA Loratadine 10 mg 03/08/19 18:50 03/14/19 08:04 Claritin PO 10 mg DAILYPRN PRN Administration Sinus Symptoms Magnesium Oxide 400 mg 03/12/19 09:00 03/14/19 08:04 Magnesium Oxide PO 400 mg BID ARABELLA Administration Sodium Chloride 10 ml 03/08/19 09:00 03/14/19 08:06 Flush - Normal Saline IVF Not Given Q12HR ARABELLA Tramadol HCl 50 mg 03/08/19 01:04 03/09/19 08:18 Ultram PO 50 mg Q6H PRN Administration Moderate Pain (4-6) - Exam General Appearance: NAD Neck: supple, no JVD Heart: RRR, no gallops Respiratory: CTAB, no rales Gastrointestinal: soft, non-tender, normal bowel sounds Extremities: no edema Hosp A/P (1) Rhabdomyolysis Code(s): M62.82 - RHABDOMYOLYSIS Status: Acute (2) Abnormal LFTs Code(s): R94.5 - ABNORMAL RESULTS OF LIVER FUNCTION STUDIES Status: Acute - Plan DVT proph w/SCDs Hold IVF Recheck CK and Potassium @ 1700 Ambulate
[2019-03-14 17:41] LABS: CK (CPK) 2154 U/L (30-200); Magnesium 2.2 mg/dL (1.6-2.6); Potassium 3.7 mmol/L (3.5-5.1)
[2019-03-15] MEDS: Lactated Ringer's 1,000 ML IV SCH ×2 (03:31→07:55)
[2019-03-15 04:14] LABS: ALT (SGPT) 95 U/L (8-55); AST (SGOT) 51 U/L (5-34); Alkaline Phosphatase 45 U/L (40-110); Anion Gap 12 mmol/L (10-20); BUN (Urea Nitrogen) 9 mg/dL (8.9-20.6); Bilirubin, Total 0.4 mg/dL (0.2-1.2); CK (CPK) 1192 U/L (30-200); Calc. Creatinine Clearance 181 mL/min (70-130); Calcium 9.2 mg/dL (7.8-10.44); Carbon Dioxide 26 mmol/L (22-29); Chloride 107 mmol/L (98-107); Estimated GFR-MDRD Greater than 90; Globulin 1.8 g/dL (2.4-3.5); Glucose 105 mg/dL (70-105); Potassium 3.6 mmol/L (3.5-5.1); Protein, Total 5.8 g/dL (6.0-8.3); Sodium 141 mmol/L (136-145)
[2019-03-15 07:52] VITALS: BP 112/68; TEMP 97.3
[2019-03-15] MEDS: Magnesium Oxide 400 MG TAB PO SCH (07:55)
--- NOTE | 2019-03-15 09:52 | PRG ---
DATE OF SERVICE: 03/15/2019 SERVICE: Nephrology. SUBJECTIVE: A 24-year-old male, being followed up for severe rhabdomyolysis. Feeling a lot better. Denied pain or decreased range of motion. OBJECTIVE: VITAL SIGNS: Temperature 97.3, pulse 78, respiratory rate 16, SpO2 of 99% on room air, blood pressure is 112/68. GENERAL: Young male, in no distress. HEENT: Normocephalic, atraumatic. Oral mucosa is moist. CARDIOVASCULAR: Regular rhythm and rate with normal heart sounds 1 and 2. RESPIRATORY: Good air entry bilaterally with no crackle or rhonchi or use of accessory muscles. GI: Full, soft, nontender, nondistended with normal bowel sounds. EXTREMITIES: Grossly normal looking, atraumatic, with no edema or erythema. OVENS SUPERVISOR: Conscious and alert and oriented x3 with appropriate mental status. DIAGNOSTIC DATA: CMP showed sodium 141, potassium 3.6, chloride 107, CO2 of 26, BUN 9, creatinine 0.77. Glucose 105, calcium 9.2, total bilirubin 0.4, AST 51, ALT 95, alkaline phosphatase 45, total protein 5.8, albumin 4.0. CPK is 1192. ASSESSMENT: 1. Severe rhabdomyolysis: Improved greatly. CPK is 1192. 2. Hypokalemia: Repleted. 3. Hypomagnesemia: Repleted. 4. Acute kidney injury: Resolved. PLAN: Discontinue IV fluids. Repeat CPK, and if trending down, the patient can be discharged. Follow up in 1 week with repeat CMP and CPK. Job ID: [id number]
--- NOTE | 2019-03-15 11:12 | DIS ---
DATE OF ADMISSION: 03/07/2019 DATE OF DISCHARGE: 03/15/2019 DISCHARGE DISPOSITION: Home. FOLLOWUP: Follow up with Dr. Roland Gilbert after 1 week. CK and CMP after 1 week. The patient was seen on the day of discharge. Denies any new complaints. No chest pain, shortness of breath, or palpitations. He denies significant muscle aches. LABORATORY DATA: Significant labs; CK on admission was greater than 40,000, at discharge is 1192. AST on admission was 532, at discharge is 51. ALT on admission was 130, at discharge is 95. WBC 6.4 with hemoglobin 16.6 on admission. Urinalysis was negative. BRIEF HOSPITAL COURSE: The patient is a 24-year-old male with no significant medical problems, presented to the hospital with generalized muscle aches after working out. Please refer to the history and physical for further details. The patient was admitted to the hospital with a diagnosis of rhabdomyolysis. His CK is remained over 40,000 for 3 to 4 days. He was placed on aggressive IV fluids of approximately 500 mL every hour for almost a week. His CK has improved to 1192. He has been cleared by Nephrology for discharge. He will follow up with Nephrology next week with a repeat CK and CMP. FINAL DIAGNOSES: 1. Rhabdomyolysis secondary to strenuous exercise. 2. Abnormal LFTs secondary to rhabdomyolysis. 3. Hypokalemia, replaced. Plan of care was discussed with the patient in detail and he stated understanding. Job ID: [id number]
--- NOTE | 2019-03-16 08:19 | PQF ---
TIA MCCANN MALIK MD [id number] CLINICAL DOCUMENTATION CLARIFICATION FORM: POST DISCHARGE Addendum to original discharge summary date: ____ Late entry note date: __ DATE: 03-16-2019 ATTN:Rod Kwon Please exercise your independent, professional judgment in responding to the clarification form. Clinical indicators are provided on the bottom of this form for your review Based on your clinical judgment, can you please specify type of rhabdomyolysis. Please check appropriate box(s): [ ] Traumatic Rhabdomyolysis [ x ] Non Traumatic Rhabdomyolysis [ ] Rhabdomyolysis unspecified [ ] Other diagnosis please specify [ ] Unable to determine For continuity of documentation, please document condition throughout progress notes and discharge summary. Thank You. CLINICAL INDICATORS: HP 03/[address] Rivera bilateral arms severe pain, decreased range of motion HP 03/[address] Rivera Rhabdomyolysis with CK of 40, [address] Nichols Rhabdomyolysis hubert to strenuous exercise DS [address] Nichols Hypokalemia RISK FACTORS: HP 03/07 Dr. Rivera- Patient was in the gym on Wednesday and had been overworking Consult- Dehydration TREATMENTS: HP 03/07 -IV fluid therapy HP 03/07- Sodium Bicarb in half NS (This form is maintained as a part of the permanent medical record) 2014 [employer]. All Rights Reserved [email or web address] [not provided] [email or web address]
== END 2019-03-15 10:22 | disposition home or self-care (01) | DRG 558 ==
LOC: ERS 18:26 → T4-A 22:25 → OBSVTOIN 22:25
PROVIDERS: ADMIT Hospitalist; ATTEND Hospitalist
DX: M62.82 Rhabdomyolysis (principal); N17.9 Acute kidney failure, unspecified; E86.0 Dehydration; E83.42 Hypomagnesemia; E87.6 Hypokalemia; I10 Essential (primary) hypertension; Z88.0 Allergy status to penicillin
CPT/HCPCS: 36415; 80048; 80053; 81003; 81015; 82550; 83735; 84100; 85025; 96360; 96361; J1650

== ENCOUNTER → 2021-12-23 | Day surgery (SDC) | payer OTHER ==
[2021-12-22 13:55] VITALS: BMI 27.8
[~2021-12-23] MED LIST: Isoproterenol 0.2 MG/1 ML AMP ONE; Midazolam HCl 2 mg/2 ml Vial ONE; Ondansetron PF 4 MG/2 ML Vial ONE; fentaNYL Citrate/PF 100 MCG/2 ML SYRINGE ONE
== END | disposition home or self-care (01) ==
LOC: SDC 06:15
PROVIDERS: ATTEND Internal Medicine Cardiovascular Disease
DX: I49.3 Ventricular premature depolarization (principal); I49.1 Atrial premature depolarization; Z79.899 Other long term (current) drug therapy; Z88.0 Allergy status to penicillin; Z91.013 Allergy to seafood; Z91.041 Radiographic dye allergy status
CPT/HCPCS: 93005; 93010; 93623; J2250; J2405